=== PATIENT | female | born 1995 | race Caucasian/White ===

== ENCOUNTER → 2018-03-08 15:45 | Observation (INO) ==
[2018-03-08 11:23] LABS: Bilirubin,Urine Negative (Negative); Blood,Urine Negative (Negative); Clarity,Urine Cloudy (Clear); Color,Urine Dark Yellow (Yellow); Glucose,Urine (UA) Normal (Normal); Ketones,Urine Trace mg/dL (Negative); Leukocyte Esterase,Urine Trace (Negative); Nitrite,Urine Negative (Negative); Protein,Urine 30 mg/dL (Neg-Trace); Specific Gravity,Urine 1.017 (1.010-1.025); Urobilinogen,Urine Normal (Normal)
[2018-03-08 11:25] LABS: Bacteria,Urine Few per hpf (None-Few); Hyaline Casts,Urine Few per lpf (None-Few); Squamous Epithelial Cell,Urine Many per lpf (None-Few)
[2018-03-08 11:32] LABS: RBC,Urine 0-3 per hpf (0-3)
[2018-03-08 11:33] LABS: Calcium Oxalate Crystals,Urine Present
--- NOTE | 2018-03-08 11:33 | OB/GYN Progress Note ---
Date of Encounter: 03/08/18 Time of Encounter: 11:28 - Assessment and Plan (1) 34 weeks gestation of Current Visit: Yes Status: Acute Vaginosis panel - pending UDS - pending Imitrex x 1 and magnesium x 1 for headache. Recommended 400mg OTC magnesium daily for headache prevention Anticipate discharge home with kick counts and PTL precautions Follow up with routine care as scheduled and PRN (2) Vaginal discharge during in third trimester Current Visit: Yes Status: Acute (3) Headache Current Visit: Yes Status: Acute Qualifiers: Headache type: unspecified Headache chronicity pattern: acute headache Intractability: not intractable Qualified Code(s): R51 - Headache Subjective - Subjective Principal diagnosis: Headache and fluid Interval history: Ms Burgess is a at 34 weeks that presents to triage with c/o headache and large gush of fluid this morning. She states she has a hx of migraines, but has not had any migraines or medications for migraines this . She denies any additional medical hx. She is seen at [facility] for her care. She would like to transfer to [place]. She states positive movement. She denies vision changes, epigastric pain, vaginal bleeding, and cramping. She denies intercourse within the past 48 hours and states she drinks a large amount of water daily. Antepartum ROS: movement normal, no vaginal bleeding, no contractions Objective - Vital Signs Vital Signs: Intake and Output 03/07/18 03/08/18 03/08/18 23:59 07:59 15:59 Other: Weight 162 kg Patient Weight 03/08/18 23:59 Weight 162 kg - Exam FHR: auscultation normal, category 1 Abdomen: Present: normal appearance, soft, gravid Uterus: Present: normal. Absent: firm, tenderness Comments: SSE - cervix visually closed. Mild amount of whitish/yellow thick discharge on vaginal anderson. No pooling, no fluid come from cervical os.
[2018-03-08 12:46] LABS: Candida DNA Not Detected (Not Detect); Gardnerella DNA Not Detected (Not Detect); Trichomonas DNA Not Detected (Not Detect)
[2018-03-08 12:47] LABS: Basophils % 0.2 %; Eosinophils % 0.3 %; Hematocrit 33.5 % (35.3-44.9); Hemoglobin 10.8 g/dL (11.5-15.4); Lymphocytes # 1.3 K/mcL (0.6-4.6); Lymphocytes % 11.9 %; Mean Corpuscular HGB Conc 32.2 g/dL (31.6-35.5); Mean Corpuscular Hemoglobin 26.5 pg (28.0-33.3); Mean Corpuscular Volume 82.3 fL (83.0-100.0); Mean Platelet Volume 11.4 fL (9.4-12.4); Monocytes # 0.7 K/mcL (0.0-1.3); Monocytes % 6.1 %; Neutrophils # 8.8 K/mcL (1.6-8.9); Platelet Count 161 K/mcL (140-400); Red Blood Count 4.07 M/mcL (3.82-4.97); Red Cell Distribution Width 13.2 % (11.5-14.5); Segmented Neutrophils % 80.5 %
[2018-03-08 13:14] LABS: Alanine Aminotransferase 11 Units/L (7-52); Aspartate Amino Transferase 15 Units/L (13-39); BUN/Creatinine Ratio 8 (6-26); Blood Urea Nitrogen 5 mg/dL (6-20); Lactate Dehydrogenase 125 Units/L (140-271); Uric Acid 3.2 mg/dL (2.3-7.6); eGFR For Non-African Americans > 60 (> 60)
[2018-03-08 14:09] LABS: Amphetamine Screen,Urine Negative ng/mL (Cutoff=1000); Barbiturate Screen,Urine Negative ng/mL (Cutoff=200); Benzodiazepines Screen,Urine Negative ng/mL (Cutoff=200); Cannabinoid Screen,Urine Negative ng/mL (Cutoff = 50); Cocaine Screen,Urine Negative ng/mL (Cutoff= 300); Opiate Screen,Urine Negative ng/mL (Cutoff=300); Phencyclidine Screen,Urine Negative ng/mL (Cutoff=25)
[2018-03-08 14:54] LABS: Protein/Creatinine Ratio,Urine 0.13 mg/mg (0.00-0.20)
[~2018-03-08 15:45] MED LIST: Magnesium Oxide 400 MG TABLET PO SCH; SUMAtriptan succinate 50 MG TABLET PO ONE
== END | disposition home or self-care (01) ==
LOC: 1NENULAB
PROVIDERS: ADMIT Student in an Organized Health Care Education/Training Program; ATTEND Student in an Organized Health Care Education/Training Program